=== PATIENT | female | born 1995 | race Caucasian/White ===

== ENCOUNTER 2016-10-30 01:14 | Emergency (ER) | payer SELFPAY ==
--- NOTE | 2016-10-30 03:38 | ER Document Report ---
ED Skin Rash/Insect Bite/Abscs - General Time seen by provider: 03:37 TRAVEL OUTSIDE OF THE [place] IN LAST 30 DAYS: No - General Chief Complaint: Abscess Stated Complaint: LUMP ON BREAST Notes: Patient is a 21-year-old female that comes emergency department for chief complaint of a painful red area that appears to be an infection on her right breast just adjacent to her nipple with surrounding swelling. He states this started to develop 2 weeks ago. She denies drainage from the area, nausea or vomiting, fever or chills. She denies diabetes. Past medical history of PCOS, she takes metformin for this. Has had an abdominal skin abscess in the past. (BRETT CELAYA) - Related Data Allergies/Adverse Reactions: Penicillins Allergy (Verified 12/09/12 22:58) Past Medical History - General Information source: Patient - Social History Smoking Status: Current Every Day Smoker Chew tobacco use (# tins/day): No Frequency of alcohol use: Social Drug Abuse: None Lives with: Family Family History: Reviewed & Not Pertinent Patient has suicidal ideation: No Patient has homicidal ideation: No Endocrine Medical History: Reports: Other - PCOS Renal/ Medical History: Reports: Hx Ovarian Cysts. Denies: Hx Peritoneal Dialysis Surgical Hx: Negative - Immunizations Hx Diphtheria, Pertussis, Tetanus Vaccination: Yes Review of Systems - Review of Systems Constitutional: No symptoms reported EENT: No symptoms reported Cardiovascular: No symptoms reported Respiratory: No symptoms reported Gastrointestinal: No symptoms reported Genitourinary: No symptoms reported Female Genitourinary: No symptoms reported Musculoskeletal: No symptoms reported Skin: See HPI Hematologic/Lymphatic: No symptoms reported Neurological/Psychological: No symptoms reported Physical Exam - Vital signs Interpretation: Normal - General General appearance: Appears well, Alert In distress: None - HEENT Head: Normocephalic, Atraumatic Eyes: Normal Conjunctiva: Normal Extraocular movements intact: Yes Eyelashes: Normal Pupils: PERRL Mouth/Lips: Normal Mucous membranes: Normal Pharynx: Normal Neck: Normal - Respiratory Respiratory status: No respiratory distress Chest status: Nontender Breath sounds: Normal Chest palpation: Normal - Cardiovascular Rhythm: Regular. No: Tachycardia Heart sounds: Normal auscultation, S1 appreciated, S2 appreciated Murmur: No - Abdominal Inspection: Normal Distension: No distension Bowel sounds: Normal Tenderness: Nontender. No: Tender Organomegaly: No organomegaly - Back Back: Normal, Nontender - Extremities General upper extremity: Normal inspection, Nontender, Normal color, Normal ROM , Normal temperature General lower extremity: Normal inspection, Nontender, Normal color, Normal ROM , Normal temperature, Normal weight bearing. No: Guzman's sign - Neurological Neuro grossly intact: Yes Cognition: Normal Orientation: AAOx4 Tracy Coma Scale Eye Opening: Spontaneous Tracy Coma Scale Verbal: Oriented Tracy Coma Scale Motor: Obeys Commands Olvin Coma Scale Total: 15 Speech: Normal Motor strength normal: LUE, RUE, LLE, RLE Sensory: Normal - Psychological Associated symptoms: Normal affect, Normal mood - Skin Skin Temperature: Warm Skin Moisture: Dry Skin Color: Normal Skin irregularity: Abscess - There is a abscess with a head with a tiny bit of necrotic-looking tissue on the top with surrounding induration and erythema located to the lateral aspect of the right nipple on the right breast. Course - Re-evaluation Re-evalutation: CESAR Shea present for examination. Patient with obvious abscess adjacent to the nipple on the right breast, swollen, indurated, fluctuant. Afebrile, not diabetic, stable vital signs, not tachycardic on my examination. Patient provided with pain medication, nausea medication. Discussed with Dr. Goldstein, recommends surgery consult. I waited then spoke to surgery automotive parts counterperson, Dr. Marte, he states that the patient will be seen soon. Patient reevaluated, resting comfortably, introduced to Robert Tirado [employer] at bedside , no current complaints. (BRETT CELAYA) 10/30/16 08:[address] Chávez who agrees to come and evaluate patient 10/30/16 09:50 I&D performed per surgeon, pt states she is to f/u in the office on Tuesday for a recheck. Surgeon recommends placing patient on Bactrim (MARY TIRADO) - Vital Signs Vital signs: Temp Pulse Resp BP Pulse Ox 98.6 F 78 18 128/82 H 98 10/30/16 09:30 10/30/16 09:30 10/30/16 09:30 10/30/16 09:30 10/30/16 09:30 Discharge - Discharge Clinical Impression: Breast abscess Condition: Stable Disposition: HOME, SELF-CARE Instructions: Trimethoprim-Sulfa ([facility]), Oral Narcotic Medication ([facility]), Abscess ([facility]) Additional Instructions: Return immediately for any new or worsening symptoms Followup with your primary care provider, call tomorrow to make a followup appointment Follow up with surgeon on Tuesday for recheck Prescriptions: Oxycodone HCl/Acetaminophen [Percocet 5-325 mg Tablet] 1 tab PO ASDIR PRN #15 tablet PRN Reason: Sulfamethoxazole/Trimethoprim [Bactrim Ds Tablet] 1 each PO BID #20 tablet Forms: Return to Work, Parent Work Note Referrals: [facility] [Provider Group] - 11/01/16
[2016-10-30] MEDS ORDERED: PROMETHAZINE HCL 25 MG TABLET PO ONE (03:59)
[2016-10-30] MEDS ORDERED: OXYCODONE-ACETAMINOPHEN 5-325 MG TABLET PO ONE (03:59)
[2016-10-30] MEDS ORDERED: LIDOCAINE 1%/EPINEPHRINE INJ 20 ML VIAL INJ ONE (04:02)
--- NOTE | 2016-10-30 09:28 | OPERATIVE REPORT E ---
Operative Report NAME: DAVON BRYAN : 1995 AGE: 21Y DATE OF SURGERY: ROOM: INDICATION: Patient presented to the Emergency Room with a right breast abscess. POSTOPERATIVE DIAGNOSIS: Right breast abscess. OPERATION: Incision and drainage of right breast abscess. SURGEON: SIGIFREDO SCOTT M.D. PROCEDURE: The procedure was done at bedside with 1% lidocaine anesthesia the patient, the area was cleaned and draped as a sterile field; 20 mL of lidocaine was injected down the right breast abscess located just to the right of the areolar area, and then an incision was made like an elliptical shape; 10 mL of pus were drained. The wound was irrigated. Dressings were applied. The patient was given wound care instructions. She will follow up Clinic. DICTATING PHYSICIAN: SIGIFREDO SCOTT M.D. [id number] Y#: [id number] ID: [id number] JOB#: [id number] ACCT: [id number] cc:SIGIFREDO SCOTT M.D. > MTDD
[2016-10-30 09:42] VITALS: BP 128/82
[2016-10-30] MEDS ORDERED: SULFAMETHOXAZOLE/TRIMETHOPRIM 800-160 MG TABLET PO ONE (09:53)
== END 2016-10-30 10:00 | disposition home or self-care (01) ==
LOC: ER 01:14
PROC: 0H9TXZZ (ICD-10-PCS; principal; 2016-10-30)
DX: N61.1 Abscess of the breast and nipple (principal); F17.200 Nicotine dependence, unspecified, uncomplicated
CPT/HCPCS: 99284; 10060; J3490